=== PATIENT | female | born 1985 | race Caucasian/White ===

== ENCOUNTER 2016-08-03 02:28 | Inpatient (IN) | payer OTHER ==
[~2016-08-03 02:28] MED LIST: Lactated Ringers 1,000 ML PRIMARY IV ONE
[2016-08-03] MEDS ORDERED: NORMAL SALINE 10 ML SYRINGE FLUSH IVP PRN ×2 (02:37→03:38)
[2016-08-03] MEDS ORDERED: BETAMET ACET/BETAMET NA PH 6 MG/1 ML - 5 ML IM SCH (02:45)
[2016-08-03 03:08] LABS: CANNABINOID SCREEN,URINE NEGATIVE (NEG); COCAINE SCREEN NEGATIVE (NEG); METHAMPHETAMINES SCREEN,URINE NEGATIVE (NEG); TRICYCLIC ANTIDEPRESSANT,URINE NEGATIVE (NEG); URINE SAMPLE TYPE VOIDED SPECIMEN; URINE SPECIFIC GRAVITY - MAN 1.014
[2016-08-03] MEDS ORDERED: Lactated Ringers 1,000 ML PRIMARY IV ONE (03:14)
[2016-08-03] MEDS ORDERED: Magnesium Sulfate 4gm (Premix) 4 GM in Premix 1 BAG IV ONE (03:15)
[2016-08-03] MEDS ORDERED: Lactated Ringers-OB Dept 1,000 ML ONE (03:31)
[2016-08-03] MEDS ORDERED: ONDANSETRON 4 MG/2 ML VIAL IVP PRN (03:38)
[2016-08-03] MEDS ORDERED: LIDOCAINE W/ SODIUM BICARB 0.5 ML SYR SUBD PRN (03:38)
[2016-08-03] MEDS ORDERED: Lactated Ringers 1,000 ML PRIMARY IV SCH (03:45)
[2016-08-03] MEDS ORDERED: Magnesium Sulfate 2gm (Premix) 2 GM in Premix 1 BAG IV ONE (03:57)
--- NOTE | 2016-08-03 03:57 | OB.PROGRES ---
Interval History: The patient is a 31-year-old at 29-6/7 weeks who has chronic hypertension not on medications currently and seronegative arthritis who presented a little after 2:00 this morning after having a large gush of fluid. Patient noted that she had cramping without pain yesterday during the day but the cramping decreased in frequency late afternoon and then resolved. Patient was sleeping and was awakened from a deep sleep secondary to a large gush of fluid. No abdominal pain. Patient can feel her contractions and she has some discomfort with contractions. No bleeding. No fever or chills. No recent illness. The patient's has essentially been uncomplicated. She had a 24-hour urine for total protein at the end of June 2016 but her urine volume was only 700 mL. Total protein 49 mg per 24 hours. One-hour Glucola was 90 and her 28 week H&H was 14 and 40 with platelets 248,000. Past medical history chronic hypertension and seronegative arthritis Past surgical history cholecystectomy Allergies to cephalosporins but patient can take penicillin Tobacco-patient quit when she found out she was . No alcohol, occasional marijuana Positive abnormal Pap smear history with last Pap normal but positive HPV Blood type is A+, rubella immune, HIV negative, RPR nonreactive Objective - Cervical Exam Cervical Exam: 1/thick/-2 per nurse exam. I did not check patient. Cephalic [place]: Contractions every 3-4 minutes Heart Rate Interpretation Category: Category I (for 29-6/7 week gestation) - Labs Labs - Last 24 Hours: Laboratory Results 08/03/16 08/03/16 Range/Units 02:24 02:45 Ur Collection Type Voided specimen U Specif Grav (Refrac) 1.014 Amnio Fld Other Info Positive (NEGATIVE) Urine Opiates Screen Negative (NEG) Ur Buprenorphine Negative (NEG) Ur Oxycodone Screen Negative (NEG) Urine Methadone Screen Negative (NEG) Ur Propoxyphene Screen Negative (NEG) Ur Barbiturates Screen Negative (NEG) U Tricyclic Antidepress Negative (NEG) Phencyclidine Screen Negative (NEG) Amphetamines Screen Negative (NEG) U Methamphetamines Scrn Negative (NEG) U Benzodiazepines Scrn Negative (NEG) Urine Cocaine Screen Negative (NEG) U Cannabinoids Screen Negative (NEG) - Additional Details Additional Details: Lungs clear to auscultation Heart regular rate and rhythm Abdomen is gravid, soft, nontender, without guarding or rebound. Extremities with trace edema with 2+ patellar reflexes bilaterally Assessment and Plan - Assessment / Plan Additional Assessment/Plan Details: Assessment: IUP 29-6/7 weeks with PPROM with positive amnio sure; baby is in the cephalic presentation by exam and cervical check labor with contractions every 3-4 minutes Chronic hypertension with initial blood pressures elevated in 150s over low 100s but not in severe range but now blood pressures 140s over high 80s to low 90s Patient is not on antihypertensive currently. Seronegative arthritis History of marijuana use with negative UDS today but positive a couple days ago Plan: The patient and I discussed PPROM and labor. We discussed betamethasone 12 mg IM now and repeat in 24 hours to assist in helping lung maturity, to assist in trying to prevent necrotizing enterocolitis, and to try to prevent interventricular hemorrhage and a pre-mature infant. Betamethasone was administered IM. We discussed magnesium sulfate for neuro protection and perhaps to help with labor. Magnesium sulfate 4 g IV bolus and 2 g per hour was administered We discussed latency antibiotics. Ampicillin 2 g IV every 6 hours was ordered. Azithromycin will be administered. This is not been ordered yet. No treatment for the patient's chronic hypertension currently. The first couple blood pressures were elevated but most likely secondary to the stress of the patient being here. Blood pressures will be followed closely. The patient does have a history of marijuana use. Negative UDS today. I did not know this initially when I spoke with M. Labs with a CBC, CMP and CRP was ordered. Also UA from the catheter urine specimen was ordered. A group B strep was completed. Amnio sure was positive. I discussed this case with maternal- medicine in [place] who are our pilot highway patrol consult in since [place] does not have a maternal medicine group. I discussed the above treatments with them and they agreed. I discussed transfer to them and they agreed. Currently secondary to whether air transport is closed. They will recheck in 1 hour in [place]. We will consider transport by ambulance to [place] to [facility]. I discussed delivery with the patient and her . I discussed a prolonged intensive care unit stay for the patient's . We discussed briefly different treatment modalities that the neonatology team would do for the baby. We also discussed that perhaps her contractions would slow and perhaps stop and the patient would not progress currently which would give the betamethasone time to assist with lung maturity, etc. The transportation of this patient may be difficult secondary to the weather and the roads and the difficulty of air transport currently. This will be worked on.
[2016-08-03 03:58] LABS: BILIRUBIN,URINE NEGATIVE (NEG); CLARITY,URINE CLEAR (CLEAR); GLUCOSE, URINE (UA) NEGATIVE (NEG); NITRATE,URINE NEGATIVE (NEG); OCCULT BLOOD,URINE LARGE (NEG); PROTEIN,URINE NEGATIVE (NEG); UROBILINOGEN,URINE 0.2 EU/dL (0.2)
[2016-08-03 03:59] LABS: URINE SAMPLE TYPE VOIDED SPECIMEN
[2016-08-03 04:00] LABS: LEUKOCYTE ESTERASE ,URINE NEGATIVE (NEG)
[2016-08-03 04:46] LABS: BASOPHILS # (AUTO) 0.05 10*3/UL; BASOPHILS % (AUTO) 0.4 % (0-1); EOSINOPHILS % (AUTO) 1.4 % (0-8); HEMATOCRIT 43.1 % (37.0-47.0); HEMOGLOBIN 15.3 g/dL (12.0-16.0); IMM GRAN % (AUTO) 0.3 % (0-5); IMM GRAN# (AUTO) 0.04 10*3/UL; LYMPHOCYTES # (AUTO) 2.83 10*3/uL; LYMPHOCYTES % (AUTO) 22.5 % (10-50); MEAN CORPUSCULAR HGB CONC 35.5 g/dL (33-37); MEAN PLATELET VOLUME 11.2 FL (7.4-12.2); MONOCYTES # (AUTO) 1.11 10*3/UL (0.3-0.8); MONOCYTES % (AUTO) 8.8 % (5-15); NEUTROPHILS # (AUTO) 8.39 10*3/UL; NEUTROPHILS % (AUTO) 66.6 % (50-80); PLATELET MORPHOLOGY COMMENT NORMAL MORPHOLOGY (NORM); RDW COEFFICIENT OF VARIATION 12.9 % (11.5-14.5); RED BLOOD COUNT 4.93 10^6/uL (4.20-5.40)
[2016-08-03] MEDS ORDERED: AZITHROMYCIN 250 MG TABLET PO ONE (04:56)
[2016-08-03 05:05] LABS: BILIRUBIN,URINE NEGATIVE (NEG); CLARITY,URINE CLEAR (CLEAR); GLUCOSE, URINE (UA) NEGATIVE (NEG); LEUKOCYTE ESTERASE ,URINE NEGATIVE (NEG); NITRATE,URINE NEGATIVE (NEG); OCCULT BLOOD,URINE NEGATIVE (NEG); PH,URINE 7.5 (5.0-8.5); PROTEIN,URINE NEGATIVE (NEG); UROBILINOGEN,URINE 0.2 EU/dL (0.2)
[2016-08-03 05:09] LABS: URINE SAMPLE TYPE CATH SPECIMEN
[2016-08-03 05:31] LABS: BLOOD UREA NITROGEN 11 mg/dL (7-22); CHLORIDE 106 meq/L (98-112); CREATININE 0.5 mg/dL (0.50-1.20); EST GLOMERULAR FILTRATION > 60 (>60 ml/min/1.73m(2)); POTASSIUM 4.6 meq/L (3.8-5.2); SODIUM 134 meq/L (135-145)
[2016-08-03 05:32] LABS: ASPARTATE AMINO TRANSFERASE 28 IU/L (8-39); BILIRUBIN,TOTAL 0.6 mg/dL (0.3-1.2); C-REACTIVE PROTEIN 0.6 mg/dL (0.0-0.9); CALCIUM 10.1 mg/dL (8.7-10.7); GLUCOSE 76 mg/dL (78-110)
[2016-08-03] MEDS ORDERED: CALCIUM GLUCONATE 100 MG/1 ML - 10 ML IVP PRN (05:37)
--- NOTE | 2016-08-03 05:44 | OB.PROGRES ---
Interval History: The patient stated she felt pressure with her contractions. She did not feel like pushing but she felt a lot of pressure. Objective - Cervical Exam Cervical Exam: With the patient feeling pressure which was significant and had been a change, and the patient stating she felt like she may be dilating, I checked the patient's cervix. /-2 cephalic; cervix was soft; there was no blood on my glove with a cervical exam [place]: Contractions every 2-4 minutes Heart Rate Interpretation Category: Category I - Labs CBC and BMP: 08/03/16 02:30 Labs - Last 24 Hours: Laboratory Results 08/03/16 08/03/16 08/03/16 Range/Units 02:24 02:30 02:45 WBC 12.60 H (4.8-10.8) 10^3/uL RBC 4.93 (4.20-5.40) 10^6/uL Hgb 15.3 (12.0-16.0) g/dL Hct 43.1 (37.0-47.0) % MCV 87.4 (81-99) FL MCH 31.0 (27-31) PG MCHC 35.5 (33-37) g/dL RDW Std Deviation 40.8 (39-50) fL RDW Coeff of Summer 12.9 (11.5-14.5) % Plt Count 257 (140-350) 10*3/uL MPV 11.2 (7.4-12.2) FL Immature Gran % (Auto) 0.3 (0-5) % Neut % (Auto) 66.6 (50-80) % Lymph % (Auto) 22.5 (10-50) % [place] % (Auto) 8.8 (5-15) % Eos % (Auto) 1.4 (0-8) % Baso % (Auto) 0.4 (0-1) % Immature Gran # (Auto) 0.04 10*3/UL Neut # (Auto) 8.39 10*3/UL Lymph # (Auto) 2.83 10*3/uL [place] # (Auto) 1.11 H (0.3-0.8) 10*3/UL Eos # (Auto) 0.18 10*3/UL Baso # (Auto) 0.05 10*3/UL WBC Morphology Comment Normal morphology (NORM) Plt Morphology Comment Normal morphology (NORM) RBC Morph Comment Normal morphology (NORM) Ur Collection Type Voided specimen Urine Color Yellow Urine Clarity Clear (CLEAR) Urine pH 7.0 (5.0-8.5) Ur Specific [place] 1.015 (1.005-1.030) U Specif Grav (Refrac) 1.014 Urine Protein Negative (NEG) mg/dl Urine Glucose (UA) Negative (NEG) mg/dL Urine Ketones Negative (NEG) Urine Occult Blood Large H (NEG) Urine Nitrate Negative (NEG) Urine Bilirubin Negative (NEG) Urine Urobilinogen 0.2 (0.2) EU/dL Ur Leukocyte Esterase Negative (NEG) Urine RBC Not Reportable Urine WBC Not Reportable Ur Squamous Epith Cells Not Reportable Ur Renal Epithelial Cell Not Reportable Urine Crystals Not Reportable Urine Bacteria Not Reportable Urine Casts Not Reportable Urine Mucus Not Reportable Urine Trichomonas Not Reportable Urine Yeast Not Reportable Ur Culture Indicated? Culture not set Amnio Fld Other Info Positive (NEGATIVE) Urine Opiates Screen Negative (NEG) Ur Buprenorphine Negative (NEG) Ur Oxycodone Screen Negative (NEG) Urine Methadone Screen Negative (NEG) Ur Propoxyphene Screen Negative (NEG) Ur Barbiturates Screen Negative (NEG) U Tricyclic Antidepress Negative (NEG) Phencyclidine Screen Negative (NEG) Amphetamines Screen Negative (NEG) U Methamphetamines Scrn Negative (NEG) U Benzodiazepines Scrn Negative (NEG) Urine Cocaine Screen Negative (NEG) U Cannabinoids Screen Negative (NEG) 08/03/16 Range/Units 04:48 WBC (4.8-10.8) 10^3/uL RBC (4.20-5.40) 10^6/uL Hgb (12.0-16.0) g/dL Hct (37.0-47.0) % MCV (81-99) FL MCH (27-31) PG MCHC (33-37) g/dL RDW Std Deviation (39-50) fL RDW Coeff of Summer (11.5-14.5) % Plt Count (140-350) 10*3/uL MPV (7.4-12.2) FL Immature Gran % (Auto) (0-5) % Neut % (Auto) (50-80) % Lymph % (Auto) (10-50) % [place] % (Auto) (5-15) % Eos % (Auto) (0-8) % Baso % (Auto) (0-1) % Immature Gran # (Auto) 10*3/UL Neut # (Auto) 10*3/UL Lymph # (Auto) 10*3/uL [place] # (Auto) (0.3-0.8) 10*3/UL Eos # (Auto) 10*3/UL Baso # (Auto) 10*3/UL WBC Morphology Comment (NORM) Plt Morphology Comment (NORM) RBC Morph Comment (NORM) Ur Collection Type Cath specimen Urine Color Yellow Urine Clarity Clear (CLEAR) Urine pH 7.5 (5.0-8.5) Ur Specific [place] 1.015 (1.005-1.030) U Specif Grav (Refrac) Urine Protein Negative (NEG) mg/dl Urine Glucose (UA) Negative (NEG) mg/dL Urine Ketones Negative (NEG) Urine Occult Blood Negative (NEG) Urine Nitrate Negative (NEG) Urine Bilirubin Negative (NEG) Urine Urobilinogen 0.2 (0.2) EU/dL Ur Leukocyte Esterase Negative (NEG) Urine RBC Urine WBC Ur Squamous Epith Cells Ur Renal Epithelial Cell Urine Crystals Urine Bacteria Urine Casts Urine Mucus Urine Trichomonas Urine Yeast Ur Culture Indicated? Amnio Fld Other Info (NEGATIVE) Urine Opiates Screen (NEG) Ur Buprenorphine (NEG) Ur Oxycodone Screen (NEG) Urine Methadone Screen (NEG) Ur Propoxyphene Screen (NEG) Ur Barbiturates Screen (NEG) U Tricyclic Antidepress (NEG) Phencyclidine Screen (NEG) Amphetamines Screen (NEG) U Methamphetamines Scrn (NEG) U Benzodiazepines Scrn (NEG) Urine Cocaine Screen (NEG) U Cannabinoids Screen (NEG) - Vital Signs Last Taken Vital Signs: Vital Signs - Last Taken Temperature 97.9 F 08/03/16 03:00 Pulse Rate 88 08/03/16 03:00 Respiratory Rate Blood Pressure Pulse Ox 100 08/03/16 03:00 Last blood pressure 152/94 Blood pressures have been in the 140s over 90s most recently. - Additional Details Additional Details: A very Limited transabdominal ultrasound showed IUP with cardiac activity with anterior placenta. The baby was in the cephalic presentation currently OP There was minimal amount of amniotic fluid but some fluid was noted. Subjectively low Assessment and Plan - Assessment / Plan Additional Assessment/Plan Details: Assessment: IUP 29-6/7 weeks with PPROM and labor. Minimal change in the patient's cervical check. Chronic hypertension Seronegative arthritis Patient has received [place] 1 dose, magnesium sulfate with a 4 g load and 2 g per hour. Patient has received ampicillin 2 g IV Azithromycin 1 g orally was ordered Cervix 1 cm dilated and 60% effaced. This is a slight change from previous exam when the patient's cervix was 1 cm and thick. The cervix is mid position and soft. There was no blood with exam. Plan: Increased magnesium sulfate to 3 grams per hour Continue to observe patient and blood pressures I will speak with the air transport in [place] one more time but it appears as though air transport is not available currently secondary to the weather. I've spoken with our ambulance service and the current plan is to transfer the patient by ambulance. The patient is aware that if her contractions increased, a delivery may be an route. The ambulance may have to divert into [place], [place] or [place], [place] or [place], [place] before getting to [place], [place]. The patient expressed understanding. Of note, I did speak with air transport in [place] and they are not available currently secondary to the weather. They will recheck later this morning. I will proceed with trying to secure an ambulance.
[2016-08-03] MEDS ORDERED: Magnesium Sulfate (Premix) 500 ML IV SCH (05:55)
[2016-08-03] MEDS ORDERED: Magnesium Sulfate (Premix) 500 ML IV ONE (05:59)
[2016-08-03 06:59] LABS: RBC,URINE RARE /hpf
[2016-08-03] MEDS ORDERED: MISOPROSTOL 200 MCG TABLET ONE (07:16)
[2016-08-03] MEDS ORDERED: LR IV ONE (07:16)
[2016-08-03] MEDS ORDERED: OXYTOCIN 20 UNIT IV ONE (07:16)
[2016-08-03] MEDS ORDERED: METHYLERGONOVINE MALEATE 0.2 MG/1 ML VIAL IM ONE (07:17)
--- NOTE | 2016-08-03 07:18 | OB.PROGRES ---
Interval History: The patient stated about a half hour ago that she was not feeling an urge to push but was feeling some pelvic pressure and it was difficult to discern if it had changed. She had mentioned to the nurse several times so I evaluated the patient. No bleeding. Positive movement. The patient could feel her contractions. Objective - Cervical Exam Cervical Exam: I completed another cervical exam secondary to the patient's complaint of pressure. /-2 cephalic; no blood on my glove noted with cervical exam. - Labs CBC and BMP: 08/03/16 02:30 08/03/16 02:30 Labs - Last 24 Hours: Laboratory Results 08/03/16 08/03/16 08/03/16 Range/Units 02:24 02:30 02:45 WBC 12.60 H (4.8-10.8) 10^3/uL RBC 4.93 (4.20-5.40) 10^6/uL Hgb 15.3 (12.0-16.0) g/dL Hct 43.1 (37.0-47.0) % MCV 87.4 (81-99) FL MCH 31.0 (27-31) PG MCHC 35.5 (33-37) g/dL RDW Std Deviation 40.8 (39-50) fL RDW Coeff of Summer 12.9 (11.5-14.5) % Plt Count 257 (140-350) 10*3/uL MPV 11.2 (7.4-12.2) FL Immature Gran % (Auto) 0.3 (0-5) % Neut % (Auto) 66.6 (50-80) % Lymph % (Auto) 22.5 (10-50) % [place] % (Auto) 8.8 (5-15) % Eos % (Auto) 1.4 (0-8) % Baso % (Auto) 0.4 (0-1) % Immature Gran # (Auto) 0.04 10*3/UL Neut # (Auto) 8.39 10*3/UL Lymph # (Auto) 2.83 10*3/uL [place] # (Auto) 1.11 H (0.3-0.8) 10*3/UL Eos # (Auto) 0.18 10*3/UL Baso # (Auto) 0.05 10*3/UL WBC Morphology Comment Normal morphology (NORM) Plt Morphology Comment Normal morphology (NORM) RBC Morph Comment Normal morphology (NORM) Sodium 134 L (135-145) meq/L Potassium 4.6 (3.8-5.2) meq/L Chloride 106 (98-112) meq/L Carbon Dioxide 20 L (23-33) meq/L Anion Gap 8 (5-20) BUN 11 (7-22) mg/dL Creatinine 0.5 (0.50-1.20) mg/dL Estimated GFR > 60 (>60 ml/min/1.73m(2)) BUN/Creatinine Ratio 22.00 H (6-20) Glucose 76 L (78-110) mg/dL Calculated Osmolality 275.0 (267-292) mOsm/kg Calcium 10.1 (8.7-10.7) mg/dL Total Bilirubin 0.6 (0.3-1.2) mg/dL AST 28 (8-39) IU/L ALT 43 (9-52) IU/L Alkaline Phosphatase 118 (38-126) IU/L C-Reactive Protein 0.6 (0.0-0.9) mg/dL Total Protein 7.0 (6.1-8.0) g/dL Albumin 3.8 (3.5-4.8) g/dL Globulin 3.2 (2.50-4.10) g/dL Albumin/Globulin Ratio 1.10 L (1.3-2.0) mg/g Ur Collection Type Voided specimen Urine Color Yellow Urine Clarity Clear (CLEAR) Urine pH 7.0 (5.0-8.5) Ur Specific [place] 1.015 (1.005-1.030) U Specif Grav (Refrac) 1.014 Urine Protein Negative (NEG) mg/dl Urine Glucose (UA) Negative (NEG) mg/dL Urine Ketones Negative (NEG) Urine Occult Blood Large H (NEG) Urine Nitrate Negative (NEG) Urine Bilirubin Negative (NEG) Urine Urobilinogen 0.2 (0.2) EU/dL Ur Leukocyte Esterase Negative (NEG) Urine RBC Not Reportable Urine WBC Not Reportable Ur Squamous Epith Cells Not Reportable Ur Renal Epithelial Cell Not Reportable Urine Crystals Not Reportable Urine Bacteria Not Reportable Urine Casts Not Reportable Urine Mucus Not Reportable Urine Trichomonas Not Reportable Urine Yeast Not Reportable Ur Culture Indicated? Culture not set Amnio Fld Other Info Positive (NEGATIVE) Urine Opiates Screen Negative (NEG) Ur Buprenorphine Negative (NEG) Ur Oxycodone Screen Negative (NEG) Urine Methadone Screen Negative (NEG) Ur Propoxyphene Screen Negative (NEG) Ur Barbiturates Screen Negative (NEG) U Tricyclic Antidepress Negative (NEG) Phencyclidine Screen Negative (NEG) Amphetamines Screen Negative (NEG) U Methamphetamines Scrn Negative (NEG) U Benzodiazepines Scrn Negative (NEG) Urine Cocaine Screen Negative (NEG) U Cannabinoids Screen Negative (NEG) 08/03/16 Range/Units 04:48 WBC (4.8-10.8) 10^3/uL RBC (4.20-5.40) 10^6/uL Hgb (12.0-16.0) g/dL Hct (37.0-47.0) % MCV (81-99) FL MCH (27-31) PG MCHC (33-37) g/dL RDW Std Deviation (39-50) fL RDW Coeff of Summer (11.5-14.5) % Plt Count (140-350) 10*3/uL MPV (7.4-12.2) FL Immature Gran % (Auto) (0-5) % Neut % (Auto) (50-80) % Lymph % (Auto) (10-50) % [place] % (Auto) (5-15) % Eos % (Auto) (0-8) % Baso % (Auto) (0-1) % Immature Gran # (Auto) 10*3/UL Neut # (Auto) 10*3/UL Lymph # (Auto) 10*3/uL [place] # (Auto) (0.3-0.8) 10*3/UL Eos # (Auto) 10*3/UL Baso # (Auto) 10*3/UL WBC Morphology Comment (NORM) Plt Morphology Comment (NORM) RBC Morph Comment (NORM) Sodium (135-145) meq/L Potassium (3.8-5.2) meq/L Chloride (98-112) meq/L Carbon Dioxide (23-33) meq/L Anion Gap (5-20) BUN (7-22) mg/dL Creatinine (0.50-1.20) mg/dL Estimated GFR (>60 ml/min/1.73m(2)) BUN/Creatinine Ratio (6-20) Glucose (78-110) mg/dL Calculated Osmolality (267-292) mOsm/kg Calcium (8.7-10.7) mg/dL Total Bilirubin (0.3-1.2) mg/dL AST (8-39) IU/L ALT (9-52) IU/L Alkaline Phosphatase (38-126) IU/L C-Reactive Protein (0.0-0.9) mg/dL Total Protein (6.1-8.0) g/dL Albumin (3.5-4.8) g/dL Globulin (2.50-4.10) g/dL Albumin/Globulin Ratio (1.3-2.0) mg/g Ur Collection Type Cath specimen Urine Color Yellow Urine Clarity Clear (CLEAR) Urine pH 7.5 (5.0-8.5) Ur Specific [place] 1.015 (1.005-1.030) U Specif Grav (Refrac) Urine Protein Negative (NEG) mg/dl Urine Glucose (UA) Negative (NEG) mg/dL Urine Ketones Negative (NEG) Urine Occult Blood Negative (NEG) Urine Nitrate Negative (NEG) Urine Bilirubin Negative (NEG) Urine Urobilinogen 0.2 (0.2) EU/dL Ur Leukocyte Esterase Negative (NEG) Urine RBC Rare Urine WBC None Ur Squamous Epith Cells None Ur Renal Epithelial Cell None Urine Crystals None Urine Bacteria None Urine Casts None Urine Mucus None Urine Trichomonas None Urine Yeast None Ur Culture Indicated? Amnio [place]ld Other Info (NEGATIVE) Urine Opiates Screen (NEG) Ur Buprenorphine (NEG) Ur Oxycodone Screen (NEG) Urine Methadone Screen (NEG) Ur Propoxyphene Screen (NEG) Ur Barbiturates Screen (NEG) U Tricyclic Antidepress (NEG) Phencyclidine Screen (NEG) Amphetamines Screen (NEG) U Methamphetamines Scrn (NEG) U Benzodiazepines Scrn (NEG) Urine Cocaine Screen (NEG) U Cannabinoids Screen (NEG) - Vital Signs Last Taken Vital Signs: Vital Signs - Last Taken Temperature 98.8 F 08/03/16 04:30 Pulse Rate 100 08/03/16 06:43 Respiratory Rate 18 08/03/16 04:15 Blood Pressure 139/83 08/03/16 06:43 Pulse Ox 98 08/03/16 06:43 Assessment and Plan - Assessment / Plan Additional Assessment/Plan Details: Assessment: IUP 29-6/7 weeks with PPROM and contractions; minimal cervical change with slight effacement but cervix still 1 cm dilated Chronic hypertension on no medications. Plan: Limited cervical checks but cervix was checked secondary to patient stating she felt pressure. Continue magnesium sulfate at 3 g per hour The patient is status post one dose of betamethasone 12 mg IM and if patient has not delivered in 24 hours, the patient should receive betamethasone 12 mg IM. The patient has received 1 dose of azithromycin 1 g orally. The patient has received ampicillin 2 g IV and should receive this IV every 6 hours The patient should be transferred to a location where a NICU is available. Since we cannot get the patient to [place] currently, [facility] was consulted. Dr. Aldair Cabello accepted the patient. We have secured an Air transport between [place] and [facility]. The patient will be transferred via ambulance to [place], [place] and then via air to [place], [place].
[2016-08-03 14:39] VITALS: RESP 18
[2016-08-03 16:34] VITALS: TEMP 98.3
[2016-08-04] MEDS ORDERED: Prenatal Multivitamin Tab 1 TAB TAB PO SCH (09:00)
== END 2016-08-03 08:45 | disposition home or self-care (01) | DRG 778 ==
LOC: OBOP 02:28 → OBIP 03:50
PROVIDERS: ADMIT Obstetrics & Gynecology; ATTEND Obstetrics & Gynecology
DX: O60.03 Preterm labor without delivery, third trimester (principal); I10 Essential (primary) hypertension
CPT/HCPCS: 80053; 81001; 81003; 81015; 84112; 85025; 86140; 87150; J0290; J0610; J0702; J2210; J2405; J3475; J7050; J7120